=== PATIENT | male | born 1950 | race Caucasian/White ===

== ENCOUNTER 2019-09-29 05:35 | Inpatient (IN) | payer MEDICARE, OTHER ==
[2019-09-26 16:27] LABS: BASOPHILS # (AUTO) 0.1 (0.0-0.1); BASOPHILS % 0.5 % (0.0-1.0); EOSINOPHILS # (AUTO) 0.3 (0.0-0.4); EOSINOPHILS % 2.5 % (0.0-6.0); HEMATOCRIT 43.3 % (38.2-49.6); HEMOGLOBIN 14.3 g/dL (14.0-18.0); LYMPHOCYTES % 28.6 % (18.0-39.1); MEAN CORPUSCULAR HEMOGLOBIN 29.3 pg (28-32); MEAN CORPUSCULAR VOLUME 88.7 fL (81-99); MONOCYTES % 9.6 % (4.4-11.3); NEUTROPHILS # (AUTO) 6.1 (2.1-6.9); NEUTROPHILS % 58.5 % (38.7-80.0); PLATELET COUNT 230 x10e3/uL (140-360); RED BLOOD COUNT 4.88 x10e6/uL (4.3-5.7)
[2019-09-26 16:45] LABS: ANION GAP 14.3 mmol/L (8-16); BLOOD UREA NITROGEN 36 mg/dL (7-26); BUN/CREATININE RATIO 31 (6-25); CARBON DIOXIDE 23 mmol/L (22-29); CHLORIDE 105 mmol/L (98-107); CREATININE, SERUM 1.18 mg/dL (0.72-1.25); EST GLOMERULAR FILTRATION RATE > 60 ML/MIN (60-); GLUCOSE 117 mg/dL (74-118); POTASSIUM 4.3 mmol/L (3.5-5.1); SODIUM 138 mmol/L (136-145)
--- NOTE | 2019-09-26 17:09 | Diagnostic Imaging Report ---
EXAMINATION: CHEST 2 VIEWS INDICATION: Pre-operative COMPARISON: None FINDINGS: LINES/TUBES:None LUNGS:The lungs are well-inflated. No focal consolidation or pulmonary edema. PLEURA:No pleural effusion or pneumothorax. MEDIASTINUM:The cardiomediastinal silhouette appears normal in size and shape. BONES/SOFT TISSUES:No acute osseous injury. 1.8 cm calcific density projecting over the left supraclavicular soft tissues, of uncertain significance. ABDOMEN:No free air under the diaphragm. IMPRESSION: No focal pneumonia or pulmonary edema. Signed by: Marta Bañuelos MD on 09/26/2019 5:06 PM
[~2019-09-29] VITALS: Ht 185.4 cm; Wt 183.9 kg
[~2019-09-29 05:35] MED LIST: COUMADIN3 MG PO; FINASTERIDE5 MG PO; FUROSEMIDE40 MG PO; JANUVIA100 MG PO; LISINOPRIL10 MG PO; LOVASTATIN20 MG PO; METFORMIN HCL500 MG PO; POTASSIUM CHLO20 ME1 PO; VIT D PO
--- OUTSIDE RECORDS SUMMARY | 2019-09-29 05:43 | XMS REPORT ---
Author Author [facility] Address Unknown Phone Unavailable Care Team Providers [employer] [place] [employer] Lieutenant Name Role Phone Neeraj RUIZ Unavailable Unavailable SONYA PELAEZ Unavailable Unavailable LEOBARDO SUAREZ Unavailable Unavailable Problems This patient has no known problems. Allergies, Adverse Reactions, Alerts This patient has no known allergies or adverse reactions. Medications This patient has no known medications. Results Test Description Test Time Test Comments Text Results Atomic Results Result Comments CHEST 2 VIEWS 2019-09-26 17:04:00 [place] [address] Patient Name: SANJANA ALEJANDRO MR #: [id number] : 1950 Age/Sex: 69/M Req #: [id number] Adm Physician: Ordered by: KIEL RUIZ MD Report #: [id number] Location: OR Room/Bed: Procedure: [id number] DX/CHEST 2 VIEWS Exam Date: 09/26/19 Exam Time: 1650 REPORT STATUS: Signed EXAMINATION: CHEST 2 VIEWS INDICATION: Pre-operative COMPARISON: None FINDINGS: LINES/TUBES:None LUNGS:The lungs are well-inflated. No focal consolidation or pulmonary edema. PLEURA:No pleural effusion or pneumothorax. MEDIASTINUM:The cardiomediastinal silhouette appears normal in size and shape. BONES/SOFT TISSUES:No acute osseous injury. 1.8 cm calcific density projecting over the left supraclavicular soft tissues, of uncertain significance. ABDOMEN:No free air under the diaphragm. IMPRESSION: No focal pneumonia or pulmonary edema. Signed by: Ernesto Nichols MD on 09/26/2019 5:06 PM Dictated By: ERNESTO NICHOLS MD 05 Transcribed By: OREN on 09/26/191705 COPY TO: KIEL RUIZ MD BASIC METABOLIC PANEL 2019-03-24 20:36:00 SODIUM (BEAKER) (test zntr=525) 133 meq/L 135-148 POTASSIUM (BEAKER) (test fmip=102) 4.4 meq/L 3.6-5.5 CHLORIDE (BEAKER) (test jccj=067) 103 meq/L 98-106 CO2 (BEAKER) (test ytmv=998) 20 meq/L 20-29 BLOOD UREA NITROGEN (BEAKER) (test jawk=990) 21 mg/dL 10-26 CREATININE (BEAKER) (test hovr=140) 1.45 mg/dL 0.50-1.20 GLUCOSE RANDOM (BEAKER) (test rnnv=949) 431 mg/dL 70-110 CALCIUM (BEAKER) (test xxli=175) 9.4 mg/dL 8.5-10.5 EGFR (BEAKER) (test nyjn=8076) 49 mL/min/1.73 sq m ESTIMATED GFR IS NOT ACCURATE CREATININE CLEARANCE IN PREDICTING GLOMERULAR FILTRATION RATE. ESTIMATED GFR IS NOT APPLICABLE FOR DIALYSIS PATIENTS. PT/[id number] 20:28:00* Test Item Value Reference Range Comments PROTIME (BEAKER) (test dryo=216) 24.8 sec 9.3-12.0 INR (BEAKER) (test hkhj=808) 2.4 <=5.9 PARTIAL THROMBOPLASTIN TIME (BEAKER) (test rofj=041) 34.8 sec 23.0-35.0 RECOMMENDED COUMADIN/WARFARIN INR THERAPY RANGESSTANDARD DOSE: 2.0 - 3.0 Inclu shanon: PROPHYLAXIS for venous thrombosis, systemic embolization; TREATMENT for joseph ous thrombosis and/or pulmonary embolus.HIGH RISK: Target INR is 2.5-3.5 for pat ients with mechanical heart valves.Final Information (Auto Output)Final Informat ion (Auto Output)Final Information (Auto Output)URINALYSIS W/ MICROSCOPIC 2019-03-24 20:23:00* Test Item Value Reference Range Comments COLOR (BEAKER) (test bvao=418) Yellow CLARITY (BEAKER) (test lfnz=179) Clear SPECIFIC GRAVITY UA (BEAKER) (test wabf=352) 1.010 1.001-1.035 PH UA (BEAKER) (test sugb=341) 5.5 5.0-8.0 PROTEIN UA (BEAKER) (test vxnj=707) Negative Negative GLUCOSE UA (BEAKER) (test gvay=643) >=1000 mg/dL Negative KETONES UA (BEAKER) (test eccu=203) Trace Negative BILIRUBIN UA (BEAKER) (test ixew=357) Negative Negative BLOOD UA (BEAKER) (test kijm=771) Negative Negative NITRITE UA (BEAKER) (test tkdh=230) Negative Negative LEUKOCYTE ESTERASE UA (BEAKER) (test oybg=473) Negative Negative UROBILINOGEN UA (BEAKER) (test vckz=657) 0.2 mg/dL 0.2-1.0 BACTERIA (BEAKER) (test sqgb=647) None Seen MUCUS (BEAKER) (test rkbu=1716) Occasional RBC UA-MANUAL (BEAKER) (test rsel=7191) None Seen /HPF WBC UA-MANUAL (BEAKER) (test rsza=1808) <5 /HPF SQUAMOUS EPITHELIAL MANUAL (BEAKER) (test dcfz=0357) <5 /HPF SOURCE(BEAKER) (test epzf=0187) BLOOD GAS, [id number] 20:12:00* Test Item Value Reference Range Comments PH VENOUS (BEAKER) (test pein=233) 7.43 7.32-7.42 PCO2 VENOUS (BEAKER) (test uhbq=125) 31 mmHg 41-51 PO2 VENOUS (BEAKER) (test iqtp=221) 54 mmHg 25-40 O2 SATURATION VENOUS (BEAKER) (test hhqd=211) 89.9 % 40.0-70.0 HCO3 VENOUS (BEAKER) (test syst=208) 20 mmol/L 21-29 BASE EXCESS VENOUS (BEAKER) (test jihh=061) -2.9 mmol/L -2.0-3.0 PATIENT TEMPERATURE (BEAKER) (test cpjy=6586) 36.6 C FIO2 (BEAKER) (test bnao=6740) 21.0 % KETONE, [id number] 20:12:00* Test Item Value Reference Range Comments KETONES, BLOOD (BEAKER) (test kaha=8451) 0.3 mmol/L <0.4 CBC W/PLT COUNT & AUTO [id number] 20:11:00* Test Item Value Reference Range Comments WHITE BLOOD CELL COUNT (BEAKER) (test gmgk=813) 11.2 K/ L 4.0-10.0 RED BLOOD CELL COUNT (BEAKER) (test gcqd=000) 5.58 M/ L 4.20-5.80 HEMOGLOBIN (BEAKER) (test qqzn=278) 15.5 GM/DL 13.0-16.8 HEMATOCRIT (BEAKER) (test xslz=485) 47.0 % 36.0-50.0 MEAN CORPUSCULAR VOLUME (BEAKER) (test eyvj=871) 84.2 fL 82.0-99.0 MEAN CORPUSCULAR HEMOGLOBIN (BEAKER) (test qdhl=325) 27.8 pg 27.0-33.0 MEAN CORPUSCULAR HEMOGLOBIN CONC (BEAKER) (test frrt=190) 33.0 GM/DL 32.0-36.0 RED CELL DISTRIBUTION WIDTH (BEAKER) (test dxly=640) 13.5 % 12.0-15.0 PLATELET COUNT (BEAKER) (test vvhl=336) 213 K/CU MM 150-430 MEAN PLATELET VOLUME (BEAKER) (test grdc=766) 11.0 fL 6.0-11.5 NUCLEATED RED BLOOD CELLS (BEAKER) (test aslf=450) 0 /100 WBC 0-0 NEUTROPHILS RELATIVE PERCENT (BEAKER) (test hgcu=753) 63 % LYMPHOCYTES RELATIVE PERCENT (BEAKER) (test rvbj=703) 27 % MONOCYTES RELATIVE PERCENT (BEAKER) (test qcwx=224) 7 % EOSINOPHILS RELATIVE PERCENT (BEAKER) (test jwdd=193) 2 % BASOPHILS RELATIVE PERCENT (BEAKER) (test iulr=820) 0 % NEUTROPHILS ABSOLUTE COUNT (BEAKER) (test jagt=642) 7.03 K/ L 1.80-8.00 LYMPHOCYTES ABSOLUTE COUNT (BEAKER) (test eljx=399) 3.02 K/ L 1.48-4.50 MONOCYTES ABSOLUTE COUNT (BEAKER) (test xqqr=638) 0.83 K/ L 0.00-1.30 EOSINOPHILS ABSOLUTE COUNT (BEAKER) (test lswd=132) 0.23 K/ L 0.00-0.50 BASOPHILS ABSOLUTE COUNT (BEAKER) (test dnsw=780) 0.04 K/ L 0.00-0.20 IMMATURE GRANULOCYTES-RELATIVE PERCENT (BEAKER) (test uclw=0686) 0 % 0-0 POCT-GLUCOSE [id number] 19:30:00* Test Item Value Reference Range Comments POC-GLUCOSE METER (BEAKER) (test dfpt=9107) 424 mg/dL 70-110 [address]ED AT [address] [address] COMPREHENSIVE METABOLIC [id number] 17:48:00* Test Item Value Reference Range Comments TOTAL PROTEIN (BEAKER) (test pxvh=523) 7.7 gm/dL 6.0-8.5 Specimen moderately hemolyzed ALBUMIN (BEAKER) (test jgnd=5384) 3.7 g/dL 3.5-5.0 Specimen moderately hemolyzed ALKALINE PHOSPHATASE (BEAKER) (test wfmn=300) 77 U/L 30-115 BILIRUBIN TOTAL (BEAKER) (test hbxo=323) 0.3 mg/dL 0.1-1.2 Specimen moderately hemolyzed SODIUM (BEAKER) (test frbe=505) 138 meq/L 135-148 POTASSIUM (BEAKER) (test igul=395) 4.4 meq/L 3.6-5.5 Specimen moderately hemolyzed CHLORIDE (BEAKER) (test qmqu=483) 104 meq/L 98-106 CO2 (BEAKER) (test xkrv=389) 21 meq/L 20-29 BLOOD UREA NITROGEN (BEAKER) (test ldyj=888) 18 mg/dL 10-26 CREATININE (BEAKER) (test mime=061) 1.16 mg/dL 0.50-1.20 Specimen moderately hemolyzed GLUCOSE RANDOM (BEAKER) (test vkgp=566) 256 mg/dL 70-110 CALCIUM (BEAKER) (test qrxx=805) 9.1 mg/dL 8.5-10.5 AST (SGOT) (BEAKER) (test mrgb=053) 26 U/L 5-40 Specimen moderately hemolyzed ALT (SGPT) (BEAKER) (test qkga=914) 18 U/L 5-50 Specimen moderately hemolyzed EGFR (BEAKER) (test cftx=5256) 63 mL/min/1.73 sq m ESTIMATED GFR IS NOT ACCURATE CREATININE CLEARANCE IN PREDICTING GLOMERULAR FILTRATION RATE. ESTIMATED GFR IS NOT APPLICABLE FOR DIALYSIS PATIENTS. CBC W/PLT COUNT & AUTO [id number] 17:29:00* Test Item Value Reference Range Comments WHITE BLOOD CELL COUNT (BEAKER) (test ladk=900) 10.0 K/ L 4.0-10.0 RED BLOOD CELL COUNT (BEAKER) (test exif=339) 5.35 M/ L 4.20-5.80 HEMOGLOBIN (BEAKER) (test rmyx=989) 15.2 GM/DL 13.0-16.8 HEMATOCRIT (BEAKER) (test oedj=973) 47.5 % 36.0-50.0 MEAN CORPUSCULAR VOLUME (BEAKER) (test stje=058) 88.8 fL 82.0-99.0 MEAN CORPUSCULAR HEMOGLOBIN (BEAKER) (test pbvf=366) 28.4 pg 27.0-33.0 MEAN CORPUSCULAR HEMOGLOBIN CONC (BEAKER) (test iywd=582) 32.0 GM/DL 32.0-36.0 RED CELL DISTRIBUTION WIDTH (BEAKER) (test hjxv=169) 13.2 % 12.0-15.0 PLATELET COUNT (BEAKER) (test iweo=657) 220 K/CU MM 150-430 MEAN PLATELET VOLUME (BEAKER) (test oyib=066) 10.5 fL 6.0-11.5 NUCLEATED RED BLOOD CELLS (BEAKER) (test cpty=648) 0 /100 WBC 0-0 NEUTROPHILS RELATIVE PERCENT (BEAKER) (test rttg=695) 57 % LYMPHOCYTES RELATIVE PERCENT (BEAKER) (test qphq=331) 31 % MONOCYTES RELATIVE PERCENT (BEAKER) (test stfd=603) 8 % EOSINOPHILS RELATIVE PERCENT (BEAKER) (test xnyl=321) 3 % BASOPHILS RELATIVE PERCENT (BEAKER) (test wzrq=755) 1 % NEUTROPHILS ABSOLUTE COUNT (BEAKER) (test pkai=429) 5.70 K/ L 1.80-8.00 LYMPHOCYTES ABSOLUTE COUNT (BEAKER) (test jqbl=002) 3.08 K/ L 1.48-4.50 MONOCYTES ABSOLUTE COUNT (BEAKER) (test ipes=758) 0.84 K/ L 0.00-1.30 EOSINOPHILS ABSOLUTE COUNT (BEAKER) (test uola=349) 0.33 K/ L 0.00-0.50 BASOPHILS ABSOLUTE COUNT (BEAKER) (test mvtt=883) 0.06 K/ L 0.00-0.20 IMMATURE GRANULOCYTES-RELATIVE PERCENT (BEAKER) (test ulpn=3798) 0 % 0-0
[2019-09-29] MEDS ORDERED: CEFAZOLIN SOD 1 GM/NS 50ML 100 ML IV ONE (06:10)
[2019-09-29] MEDS ORDERED: BUPIVACAINE 0.25% 30ML SDV INJ ONE (06:52)
[2019-09-29] MEDS ORDERED: LIDOCAINE HCL (LTA) 4 ML SOLN ONE (06:57)
[2019-09-29] MEDS ORDERED: ACETAMINOPHEN 1000 MG/100 ML 100 ML IV ONE (06:57)
[2019-09-29 06:58] LABS: INR 1.08; PARTIAL THROMBOPLASTIN TIME 34.3 seconds (23.8-35.5); PROTHROMBIN TIME 14.5 seconds (11.9-14.5)
[2019-09-29] MEDS ORDERED: SCOPOLAMINE 1.5 MG PATCH ONE (06:58)
[2019-09-29] MEDS ORDERED: SUGAMMADEX SODIUM 200 MG/2 ML VIAL IV ONE ×2 (06:58→10:12)
[2019-09-29] MEDS ORDERED: SODIUM CHLORIDE 0.9% 1000ML 1,000 ML IV SCH (07:36)
[2019-09-29] MEDS ORDERED: ONDANSETRON HCL INJ 2MG/ML 2ML 2 MG/ML VIAL ONE ×2 (09:53→18:54)
[2019-09-29] MEDS ORDERED: METOCLOPRAMIDE HCL 10 MG/2ML VIAL ONE (09:53)
[2019-09-29] MEDS ORDERED: FENTANYL CITRATE/PF 100MCG/2 ML INJ ONE ×2 (10:08→19:32)
[2019-09-29] MEDS ORDERED: PROMETHAZINE HCL (IM) 25 MG/ML VIAL ONE (10:28)
--- NOTE | 2019-09-29 11:01 | NUR ---
REPORT RECEIVED FROM SHELLEY IN PACU AWAITING FOR PT TO ARRIVE TO FLOOR
[2019-09-29 11:10] VITALS: BP 176/88
[2019-09-29 11:17] VITALS: BP 171/85
--- NOTE | 2019-09-29 11:17 | NUR ---
RECEIVED PT TO FLOOR AA0X3 S.P GASTRIC SLEEVE TROCHAR SITES CLEAN AND DRY PT IS CONTROLLED AT THIS TIME IV TO THE RIGHT FA 20 SL WILL CONTINUE TO MONITOR PT CLOSELY SIDE RAILSX2, BED WHEELS LOCKED,CALL LIGHT IS WITHIN EASY REACH, INSTRUCTED TO CALL FOR ASSISTANCE IF NEEDED
--- NOTE | 2019-09-29 11:36 | Diagnostic Imaging Report ---
EXAMINATION: CHEST SINGLE (PORTABLE) INDICATION: Shortness of breath COMPARISON: Chest are graft of 09/26/2019 FINDINGS: LINES/TUBES:EKG leads overlie the chest. LUNGS:The lung volumes are low. There is perihilar fullness and indistinctness of the pulmonary vasculature. PLEURA:No pleural effusion or pneumothorax. MEDIASTINUM:The cardiomediastinal silhouette appears unchanged in size and shape. BONES/SOFT TISSUES:No acute osseous injury. ABDOMEN:No free air under the diaphragm. IMPRESSION: Mild interstitial pulmonary edema. Signed by: Marta Bañuelos MD on 09/29/2019 11:33 AM
[2019-09-29 11:39] VITALS: BP 171/85
--- NOTE | 2019-09-29 12:15 | History and Physical ---
CHIEF COMPLAINT: "I cannot breathe." HISTORY OF PRESENT ILLNESS: This is a 69-year-old white man, who was admitted to [facility] with diagnosis of extreme obesity BMI of 52, complicating underlying heart failure, hypertension, type 2 diabetes mellitus. Today, the patient underwent successful laparoscopic gastric band removal and sleeve gastrectomy. The surgery was performed by Dr. Jovanni Sesay. This gentleman has a known history of underlying diastolic heart failure as stated previously. The patient also has hypertension, type 2 diabetes mellitus. The patient states he is very short of breath at this time in the postanesthesia care unit. In the operating room, the patient did receive 1200 mL of intravenous saline. The patient states in 2008, he did have pulmonary emboli and was on warfarin therapy. The patient states he has been off warfarin therapy for the last five to six days prior to this surgery. The patient's prothrombin time and INR today are 14.5 and 1.08 respectively. On September 26, 2019, the patient's complete blood count was unremarkable, but he was found to have BUN and creatinine 36 and 1.18 respectively. His potassium is 4.3. The patient had a chest x-ray done on September 26, 2019, which was unremarkable. REVIEW OF SYSTEMS: GENERAL: Weight is stable. No fever or chills. HEENT: No headaches. No visual changes. CARDIOVASCULAR: The patient complains of shortness of breath today in the postanesthesia care unit. No chest pain or tightness. No palpitations. GI: Mild nausea, but no vomiting. : Ling catheter which is placed because he will receive intravenous diuretics. NEUROMUSCULAR: Denies any limb weakness or numbness. ALLERGIES: SULFA ANTIBIOTICS. PAST MEDICAL HISTORY: 1. Chronic diastolic congestive heart failure. 2. Hypertensive heart disease. 3. Type 2 diabetes mellitus. 4. Benign prostatic hypertrophy. 5. Extreme obesity. BMI of 52. 6. History of pulmonary emboli 2008. 7. Hyperlipidemia. MEDICATIONS: 1. Finasteride 5 mg daily. 2. Furosemide 40 mg daily. 3. Lovastatin 20 mg daily. 4. Metformin 500 mg daily. 5. Potassium chloride 20 mEq daily. 6. Warfarin 7.5 mg daily. 7. Vitamin D 1000 units daily. SURGICAL HISTORY: 1. Laparoscopic gastric banding many, many years ago. 2. Laparoscopic gastric band removal and sleeve gastrectomy today. 3. Right eye surgery to repair a traumatic injury. 4. Left knee arthroscopy. FAMILY HISTORY: Multiple members with hypertension. SOCIAL HISTORY: This man is single. He is employed as a m48/m60 tank driver. No history of tobacco or alcohol use. PHYSICAL EXAMINATION: GENERAL: He is awake, alert. He is in mild distress. He states that he is having difficulty breathing. VITAL SIGNS: Height is 6 feet 1.5 inches. Weight 408 pounds. BMI 52. Blood pressure is 164/82, pulse is 64, respiratory rate 22, oxygen saturation 97% on 2 L oxygen. He is afebrile. INTEGUMENT: Skin is warm and dry. No pallor, jaundice, or diaphoresis. HEENT: Anterior sclerae with moist mucous membranes. NECK: Supple. No evidence of jugular venous distention. CARDIOVASCULAR: Distant heart sounds. Regular rate and rhythm. LUNGS: No rales, no rhonchi or wheezes. ABDOMEN: Obese. The patient's laparoscopic incisions are clean, dry, and intact. EXTREMITIES: No edema of legs. The patient is currently wearing sequential compression devices. NEUROLOGIC: Intact. DIAGNOSES: 1. Extreme obesity, body mass index of 52, complicated underlying diastolic heart failure, hypertension, type 2 diabetes mellitus. 2. Status post laparoscopic sleeve gastrectomy and gastric band removal. 3. Acute on chronic diastolic heart failure. 4. Hypertensive heart disease. 5. Stage 2 chronic kidney disease. 6. History of pulmonary emboli in 2008. PLAN: 1. We will administer enoxaparin 120 mg subcutaneous twice a day since he is off warfarin therapy and he has a history of pulmonary emboli. 2. We will resume warfarin therapy tomorrow. 3. We will administer intravenous furosemide. 4. We will place Ling catheter. 5. We ill stop intravenous fluids. 6. To follow renal function and electrolytes, and patient public. 7. The patient was placed on telemetry. 8. Resume home medications, but we will hold metformin until renal function is reassessed. I spent an hour in the care of this patient. MD NABEEL Bone/JIMMIE /[id number] MTDD
[2019-09-29] MEDS ORDERED: FUROSEMIDE INJ 10 MG/ML 4 ML VIAL IV NR (12:30)
[2019-09-29] MEDS ORDERED: ENOXAPARIN SOD INJ 120 MG/0.8 ML SYR SC SCH (13:00)
[2019-09-29] MEDS: SITAGLIPTIN 100 MG TAB PO SCH (13:16)
--- NOTE | 2019-09-29 13:16 | NUR ---
CLARIFIED DIABETIC AND BLOOD THINNERS MEDICATIONS TO GIVE TODAY WITH MD LOVE
--- NOTE | 2019-09-29 13:17 | NUR ---
MD LOVE OK TO DC DAISY PER PT REQUEST WILL ATTEMPTING TO DC. PT STATES TO WAIT PT CHANGED HIS MIND ABOUT REMOVAL, ASKED TO CALL IF PT CHANGES HIS MIND
[2019-09-29] MEDS ORDERED: SCOPOLAMINE 1.5 MG PATCH TOP SCH (14:00)
[2019-09-29 16:44] VITALS: BP 169/71
[2019-09-29] MEDS ORDERED: WARFARIN SOD 5 MG TAB PO SCH (17:00)
[2019-09-29] MEDS ORDERED: WARFARIN SOD 3 MG TAB PO SCH (17:00)
[2019-09-29] MEDS ORDERED: WARFARIN SOD 2.5 MG TAB PO SCH (17:00)
[2019-09-29] MEDS: ENOXAPARIN SOD INJ 120 MG/0.8 ML SYR SC SCH (17:09)
--- NOTE | 2019-09-29 17:32 | Operative Report ---
DATE OF PROCEDURE: 09/29/2019 SURGEON: Jovanni Sesay MD PREOPERATIVE DIAGNOSES: 1. Morbid obesity, BMI 51. 2. Hypertension. 3. Type 2 diabetes mellitus. 4. History of pulmonary embolism. 5. Status post lap-band placement in the past, with failure to lose weight with the lap-band. POSTOPERATIVE DIAGNOSES: 1. Morbid obesity, BMI 51. 2. Hypertension. 3. Type 2 diabetes mellitus. 4. History of pulmonary embolism. 5. Status post lap-band placement in the past, with failure to lose weight with the lap-band. PREOPERATIVE INDICATION: Treat disease, prevent complications related to comorbid conditions of obesity. PROCEDURES: 1. Laparoscopic vertical sleeve gastrectomy. 2. Laparoscopic removal of adjustable gastric band due to failure of therapy. ANESTHESIA: General. ROD PLACER: Eleuterio Winters certified ophthalmic surgical assistant (needed due to complexity of case). FLUIDS: 1 L crystalloid. ESTIMATED BLOOD LOSS: 30 mL. DRAINS: None. COMPLICATIONS: None. SPECIMENS: 1. Lap band port with catheter. 2. Partial stomach. GRAFTS: None. FINDINGS: 1. Intact lap band. 2. Moderate amount of adhesions. 3. Negative intraoperative EGD leak test. PROCEDURE IN DETAIL: The patient was brought to the operating room, was intubated under general endotracheal anesthesia. He was positioned supine with both arms abducted and all pressure points appropriately padded. He was sterilely prepped and draped in the usual fashion. A preprocedure pause was performed, identifying the patient, use of perioperative antibiotics, intended procedure, and staff surgeon. Access was gained via a 5 mm left subcostal incision using a Veress needle. The abdomen was insufflated to a pressure of 15 mmHg pressure. Four additional trocars were placed in the standard position. We used long trocars due to the abundant adiposity and the large pannus that the patient had. The dissection was quite difficult and tedious. We were able to identify and locate the lap band. I lysed all adhesions around the lap-band and was able to remove the intraabdominal portion of the lap-band with the catheter through the right periumbilical port site. Next, I mobilized the greater curvature stomach from about 3 cm proximal to the pyloric valve to the left des of the diaphragm using the [place] LigaSure device. Again, this was quite difficult and tedious due to the patient's body habitus and the amount of torque that was placed on the instruments. Once this was completed, I then inserted an adult sized endoscope along the lesser curvature of stomach. The greater curvature of stomach was resected with multiple firings of a 60 mm Endo-MICHAEL purple load Covidien stapling device, which was reinforced with TRS/SeamGuard. Once this was completed, an intraoperative EGD leak test was performed. No leaks were identified. This specimen was removed through the right periumbilical port site. The port site was closed with 0 Vicryl suture using Sal Gomez technique in a ojtnty-lg-isdfd fashion. We then verified hemostasis, removed the liver retractor, and desufflated the abdomen. The trocars were removed. Incision sites were closed with 4-0 Monocryl suture in subcu fashion. Next, our attention turned to the subcutaneous port and transverse incision overlying the previous incision was made in a secondary fashion. Dissection was again carried down to the level of the subcutaneous port. The port was freed from its attachments and was removed along the rest of the catheter. We then closed that port site with 3-0 Vicryl suture and 4-0 Monocryl suture in a subcu fashion. Dermabond dressings were applied. 0.25% bupivacaine was used both at the preperitoneal incision site. The patient tolerated the procedure well. Type of wound was type 2, clean, contaminant. MD JUAN Castro/JIMMIE /[id number]
--- NOTE | 2019-09-29 17:51 | NUR ---
Received consult for diet education due to bariatric surgery. Pt had a sleeve gastrectomy. Provided pt with handouts regarding laparoscopic gastric sleeve post-surgery diet guidelines. Pt was not interested in verbal education at time of visit and stated he will read provided materials at a later time. Encouraged pt to contact RD if he has questions.
[2019-09-29] MEDS ORDERED: ENOXAPARIN SOD INJ 40 MG/0.4 ML SYR SC SCH ×2 (18:00)
[2019-09-29] MEDS ORDERED: ROCURONIUM BROMIDE 10 MG/ML 5ML VIAL ONE (18:54)
[2019-09-29] MEDS ORDERED: LIDOCAINE HCL 2% LOCAL INJ 5 ML SDV VIAL INJ ONE (18:54)
[2019-09-29] MEDS ORDERED: LIDOCAINE HCL 2% JELLY 5 ML TUBE ONE (18:54)
[2019-09-29] MEDS ORDERED: PROPOFOL IV EMULSION 10 MG/ML 20 ML VIAL ONE (18:54)
[2019-09-29] MEDS ORDERED: SEVOFLURANE INHAL SOLN 250 ML PEN BTL ONE (18:54)
[2019-09-29] MEDS ORDERED: DEXAMETHASONE SOD PHOS INJ 4 MG/ML VIAL ONE (18:54)
[2019-09-29] MEDS ORDERED: MIDAZOLAM HCL 2 MG/2 ML VIAL ONE (19:32)
[2019-09-29 20:00] VITALS: BP 165/82
[2019-09-30] VITALS (7 sets, daily range): BP systolic 143–177; BP diastolic 65–82
--- NOTE | 2019-09-30 03:57 | NUR ---
PAGED DR LOVE TO NOTIFY PT'S ELEVATED BLOOD PRESSURE.AWAITING CALL BACK AT THIS TIME.
[2019-09-30] MEDS: ONDANSETRON HCL INJ 2MG/ML 2ML 2 MG/ML VIAL IV PRN ×2 (04:26→10:38)
[2019-09-30] MEDS: MORPHINE SULFATE 2 MG/ML SYR 1ML IV PRN ×4 (04:28→10:38)
[2019-09-30] MEDS: ENOXAPARIN SOD INJ 120 MG/0.8 ML SYR SC SCH ×2 (05:05→17:11)
--- NOTE | 2019-09-30 05:22 | NUR ---
REPAGED DR LOVE AT THIS TIME TO NOTIFY PT'S BP 174/82.
[2019-09-30] MEDS ORDERED: LISINOPRIL 10 MG TAB PO SCH (05:30)
[2019-09-30 05:39] LABS: BASOPHILS % 0.1 % (0.0-1.0); HEMATOCRIT 40.2 % (38.2-49.6); HEMOGLOBIN 13.6 g/dL (14.0-18.0); LYMPHOCYTES # (AUTO) 1.8 (1.0-3.2); LYMPHOCYTES % 11.8 % (18.0-39.1); MEAN CORPUSCULAR HEMOGLOBIN 29.8 pg (28-32); MEAN CORPUSCULAR HGB CONC 33.8 g/dL (31-35); MONOCYTES # (AUTO) 1.3 (0.2-0.8); MONOCYTES % 8.6 % (4.4-11.3); NEUTROPHILS # (AUTO) 12.1 (2.1-6.9); PLATELET COUNT 186 x10e3/uL (140-360); RED BLOOD COUNT 4.57 x10e6/uL (4.3-5.7); RED CELL DISTRIBUTION WIDTH 13.5 % (11.7-14.4)
[2019-09-30 06:00] LABS: INR 1.11; PROTHROMBIN TIME 14.8 seconds (11.9-14.5)
[2019-09-30 06:08] LABS: ALANINE AMINOTRANSFERASE 30 IU/L (0-55); ALBUMIN 3.5 g/dL (3.5-5.0); ALBUMIN/GLOBULIN RATIO 1.1 (0.8-2.0); ALKALINE PHOSPHATASE 56 IU/L (40-150); ANION GAP 11.7 mmol/L (8-16); BLOOD UREA NITROGEN 18 mg/dL (7-26); BUN/CREATININE RATIO 17 (6-25); CALCIUM 9.1 mg/dL (8.4-10.2); CARBON DIOXIDE 25 mmol/L (22-29); CHLORIDE 104 mmol/L (98-107); CREATININE, SERUM 1.06 mg/dL (0.72-1.25); EST GLOMERULAR FILTRATION RATE > 60 ML/MIN (60-); GLUCOSE 137 mg/dL (74-118); MAGNESIUM 2.1 MG/DL (1.3-2.1); PHOSPHORUS 3.4 MG/DL (2.3-4.7); POTASSIUM 3.7 mmol/L (3.5-5.1); SODIUM 137 mmol/L (136-145)
[2019-09-30] MEDS: LISINOPRIL 10 MG TAB PO SCH (06:12)
--- NOTE | 2019-09-30 07:00 | NUR ---
Bedside rounding completed and the pt. was advised tat the plan for today is to ambulate and remove the cath.
--- NOTE | 2019-09-30 07:03 | NUR ---
REPORT GIVEN TO ONCOMING NURSE.WALKING ROUNDS MADE.PT RESTING IN BED WITH NO S/S OF DISTRESS.CALL LIGHT WITHIN EASY REACH.
--- NOTE | 2019-09-30 08:16 | NUR ---
SPOKE WITH DOCTOR ORDERED A BARIATRIC WALKER, OBTAINED SIGNATURES FROM DOCTOR AND PATIENT, PUT WITH ORDER AND FACE SHEET FILED IN PACU.
--- NOTE | 2019-09-30 08:24 | NUR ---
PROGRESS NOTE S: No major complaints; pain not well-controlled he says O: AF, VSS Gen- no distress Abd- soft, incisions healing well A/P: POD 1, s/p Lap revision gastric band to sleeve gastrectomy -Clears, ambulate, IS, OOB to chair -Likely dc home tomorrow -Diet and f/u instructions given to patient
--- NOTE | 2019-09-30 08:30 | NUR ---
The marquez and the tele was discontinued and the pt medicated for c/o pain.
[2019-09-30] MEDS: FINASTERIDE 5 MG TAB PO SCH (08:31)
[2019-09-30] MEDS: SITAGLIPTIN 100 MG TAB PO SCH (08:31)
[2019-09-30] MEDS: METFORMIN HCL 500 MG TAB PO SCH (08:31)
[2019-09-30] MEDS: FUROSEMIDE 40 MG TAB PO SCH (08:31)
[2019-09-30] MEDS: POTASSIUM CHLORIDE 20 MEQ TAB CR PO SCH (08:32)
--- NOTE | 2019-09-30 08:57 | Discharge Summary ---
ADMITTING DIAGNOSES: 1. Extreme obesity, BMI 52, complicating underlying heart failure, hypertension, type 2 diabetes mellitus. 2. Acute on chronic diastolic heart failure. 3. Hypertensive heart disease. 4. Stage 2 chronic kidney disease. 5. History of pulmonary emboli in 2008. DISCHARGE DIAGNOSES: 1. Status post laparoscopic sleeve gastrectomy and gastric band removal. 2. Extreme obesity, BMI 52, complicated underlying heart failure, hypertension, type 2 diabetes mellitus. 3. Srtmr-cf-avvqngg diastolic congestive heart failure, resolving. 4. Hypertensive heart disease. 5. Type 2 diabetes mellitus. 6. History of pulmonary emboli in 2009. HOSPITAL COURSE: This is a 69-year-old white man, who was initially admitted to [facility] with diagnosis of extreme obesity with BMI of 52 that was complicating his underlying hypertension, heart failure, and type 2 diabetes mellitus. During this hospitalization, the patient underwent successful laparoscopic gastric band removal and sleeve gastrectomy. The patient's brief hospitalization was unremarkable. In the postanesthesia care unit, he did receive intravenous furosemide and had Ling catheter placed because he experienced acute on chronic diastolic heart failure type symptoms. The patient diuresed well with one dose of intravenous furosemide. Prior to discharge, Ling catheter is removed. The patient did ambulate with physical therapy during this hospitalization. The patient stated at home he only walks a few feet with two canes. The patient was instructed on proper usage of incentive spirometer during this hospitalization to prevent atelectasis. The patient was started on enoxaparin 120 mg subcutaneous twice a day while warfarin was held because he has a history of pulmonary emboli. The patient stayed when extra day for pain control. So, he actually discharged on Sunday10/01/19. CONDITION ON DISCHARGE: Stable. DISCHARGE MEDICATIONS: 1. Tylenol No. 3 one pill every 4 hours p.r.n. pain, 25 prescribed, no refills. 2. Zofran 4 mg one tablet every 6 hours p.r.n. nausea and vomiting, 20 prescribed, no refills. 3. Warfarin 7.5 mg daily. 4. Lisinopril 20 mg daily. 5. Sitagliptin 100 mg daily. 6. Finasteride 5 mg daily. 7. Metformin 500 mg daily. 8. Furosemide 40 mg daily. 9. Lovastatin 20 mg q.h.s. 10. Vitamin D 1000 units daily. 11. Potassium chloride 20 mEq daily. FOLLOWUP INSTRUCTIONS: The patient instructed to follow up with Dr. Jovanni Sesay within 1 week and with his primary care physician within two weeks. MD ESAU BoneO/JIMMIE /[id number] cc: Jovanni Sesay MD MTDD
[2019-09-30] MEDS ORDERED: SITAGLIPTIN 100 MG TAB PO SCH (09:00)
[2019-09-30] MEDS: HYDROCODONE/APAP 7.5MG-325MG 1 EA TAB PO PRN ×3 (13:23→21:45)
--- NOTE | 2019-09-30 13:50 | NUR ---
Visit made by the Spiritual Care Department Pastoral Visitor, Vilma Waddell. PV provided pastoral presence, hospitality, and supportive listening. Pastoral Visitor informed pt/family of the scope of [employer] and availability. KALYN WRIGHT Audio Narrator Spiritual Care Department O: [phone] Pager: [phone] ([phone] number calling from)
--- NOTE | 2019-09-30 14:52 | NUR ---
IMM EXPLAINED TO PATIENT, PATIENT SIGNED, PLACED IN CHART, COPY TO PATIENT
[2019-09-30] MEDS ORDERED: WARFARIN SOD 2.5 MG TAB PO SCH (17:00)
[2019-09-30] MEDS ORDERED: WARFARIN SOD 5 MG TAB PO SCH (17:00)
[2019-10-01] MEDS: HYDROCODONE/APAP 7.5MG-325MG 1 EA TAB PO PRN ×4 (01:52→14:00)
[2019-10-01 03:57] VITALS: BP 137/60
[2019-10-01] MEDS: ENOXAPARIN SOD INJ 120 MG/0.8 ML SYR SC SCH (04:56)
[2019-10-01] MEDS: LISINOPRIL 10 MG TAB PO SCH (05:10)
[2019-10-01 05:21] LABS: BASOPHILS # (AUTO) 0.1 (0.0-0.1); BASOPHILS % 0.4 % (0.0-1.0); EOSINOPHILS # (AUTO) 0.1 (0.0-0.4); HEMATOCRIT 41.4 % (38.2-49.6); HEMOGLOBIN 13.6 g/dL (14.0-18.0); LYMPHOCYTES # (AUTO) 2.3 (1.0-3.2); LYMPHOCYTES % 16.9 % (18.0-39.1); MEAN CORPUSCULAR HEMOGLOBIN 29.4 pg (28-32); MEAN CORPUSCULAR HGB CONC 32.9 g/dL (31-35); MEAN CORPUSCULAR VOLUME 89.6 fL (81-99); MONOCYTES # (AUTO) 1.3 (0.2-0.8); MONOCYTES % 9.3 % (4.4-11.3); NEUTROPHILS # (AUTO) 9.7 (2.1-6.9); NEUTROPHILS % 72.1 % (38.7-80.0); PLATELET COUNT 177 x10e3/uL (140-360); RED BLOOD COUNT 4.62 x10e6/uL (4.3-5.7); RED CELL DISTRIBUTION WIDTH 13.5 % (11.7-14.4)
[2019-10-01 05:48] LABS: ANION GAP 14.9 mmol/L (8-16); BLOOD UREA NITROGEN 15 mg/dL (7-26); BUN/CREATININE RATIO 15 (6-25); CARBON DIOXIDE 25 mmol/L (22-29); CHLORIDE 100 mmol/L (98-107); CREATININE, SERUM 0.99 mg/dL (0.72-1.25); EST GLOMERULAR FILTRATION RATE > 60 ML/MIN (60-); GLUCOSE 122 mg/dL (74-118); POTASSIUM 3.9 mmol/L (3.5-5.1); SODIUM 136 mmol/L (136-145)
--- NOTE | 2019-10-01 07:28 | NUR ---
REPORT GIVEN TO ONCOMING NURSE.WALKING ROUNDS MADE.PT RESTING IN BED WITH NO S/S OF DISTRESS.CALL LIGHT WITHIN EASY REACH.
[2019-10-01] MEDS: METFORMIN HCL 500 MG TAB PO SCH (08:00)
[2019-10-01 08:32] LABS: INR 1.15; PROTHROMBIN TIME 15.3 seconds (11.9-14.5)
[2019-10-01 08:36] VITALS: BP_SYST 124; BP_SYST 84; BP_DIAS 53; BP_DIAS 58
[2019-10-01] MEDS: SITAGLIPTIN 100 MG TAB PO SCH (08:51)
[2019-10-01] MEDS: FINASTERIDE 5 MG TAB PO SCH (08:51)
[2019-10-01] MEDS: POTASSIUM CHLORIDE 20 MEQ TAB CR PO SCH (08:51)
[2019-10-01] MEDS: FUROSEMIDE 40 MG TAB PO SCH ×2 (08:51→08:58)
[2019-10-01 08:55] VITALS: BP 124/58
--- NOTE | 2019-10-01 09:18 | NUR ---
MD LOVE INTO SEE PT, DISCUSSED DISCHARGE INSTRUCTIONS WITH PT, PT VERBALIZED UNDERSTANDING, AWAITING RIDE
[2019-10-01] MEDS ORDERED: ZOFRAN8 MG PO (11:39)
[2019-10-01] MEDS ORDERED: TYLENOL WITH C1 EACH PO (11:39)
[2019-10-01 12:24] VITALS: BP 113/58
--- NOTE | 2019-10-01 14:09 | NUR ---
DISCHARGE INSTRUCTIONS REVIEWED WITH PT, PT VERBALIZED UNDERSTANDING, PO [place] GIVEN FOR 8/10 PAIN, WHEELED OFF UNIT VIA WC FOR DISCHARGE, NO CHANGE IN CONDITION
== END 2019-10-01 14:10 | disposition home or self-care (01) | DRG 619 ==
LOC: OR 05:35 → PACU V 10:09 → MED/SURG 11:10
PROVIDERS: ADMIT Internal Medicine; ATTEND Internal Medicine
PROC: 0DP60CZ Removal of Extraluminal Device from Stomach, Open Approach (ICD-10-PCS; 2019-09-29)
PROC: 0DB60Z3 Excision of Stomach, Open Approach, Vertical (ICD-10-PCS; principal; 2019-09-29 07:30)
DX: E66.01 Morbid (severe) obesity due to excess calories (principal); I50.33 Acute on chronic diastolic (congestive) heart failure; I13.0 Hypertensive heart and chronic kidney disease with heart failure and stage 1 through stage 4 chronic kidney disease, or unspecified chronic kidney disease; Z68.43 Body mass index [BMI] 50.0-59.9, adult; Z86.711 Personal history of pulmonary embolism; E11.22 Type 2 diabetes mellitus with diabetic chronic kidney disease; N18.2 Chronic kidney disease, stage 2 (mild); Z79.4 Long term (current) use of insulin; Z79.01 Long term (current) use of anticoagulants; N40.0 Benign prostatic hyperplasia without lower urinary tract symptoms; E78.5 Hyperlipidemia, unspecified
CPT/HCPCS: 36415; 71045; 71046; 80048; 80053; 82948; 83735; 83880; 84100; 85025; 85610; 85730; 97139; J0690; J1100; J1650; J1940; J2001; J2250; J2270; J2405; J2550; J2765; J3010